=== PATIENT | female | born 2000 | race Caucasian/White ===

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

== ENCOUNTER 2021-01-27 19:17 | Emergency (ER) | payer OTHER ==
[2021-01-27 20:14] LABS: HEMOGLOBIN 8.2 gm/dl (12.3-15.3); RED BLOOD COUNT 3.52 M/UL (4.00-5.10); WHITE BLOOD COUNT 12.9 K/UL (4.5-11.0)
[2021-01-27 20:40] LABS: BUN/CREATININE RATIO 14 (0-10)
[2021-01-27] MEDS ORDERED: MACROBID 100 M100 MG PO (22:03)
== END 2021-01-27 22:18 | disposition home or self-care (01) ==
LOC: ER1 19:17
PROVIDERS: Physician Assistant
DX: O99.013 Anemia complicating pregnancy, third trimester (principal); O99.283 Endocrine, nutritional and metabolic diseases complicating pregnancy, third trimester; O99.513 Diseases of the respiratory system complicating pregnancy, third trimester; J45.909 Unspecified asthma, uncomplicated; K21.9 Gastro-esophageal reflux disease without esophagitis; Z3A.49 Greater than 42 weeks gestation of pregnancy; Z79.899 Other long term (current) drug therapy
CPT/HCPCS: 80053; 81001; 85025; 87086; 99284

== ENCOUNTER 2021-03-08 15:42 | Inpatient (IN) | payer OTHER ==
[~2021-03-08] VITALS: Ht 172.7 cm; Wt 69.4 kg
[~2021-03-08 15:42] MED LIST changes: +MACROBID 100 M100 MG PO
[2021-03-08 22:50] LABS: HEMOGLOBIN 7.4 gm/dl (12.3-15.3); RED BLOOD COUNT 3.61 M/UL (4.00-5.10); WHITE BLOOD COUNT 15.2 K/UL (4.5-11.0)
[2021-03-09] MEDS ORDERED: ACID CONTROLLER10 MG PO (00:34)
[2021-03-10 05:54] LABS: HEMOGLOBIN 6.7 gm/dl (12.3-15.3)
[2021-03-11] MEDS ORDERED: SOF-LAX100 MG PO (12:19)
[2021-03-11] MEDS ORDERED: IBUPROFEN800 MG PO (12:19)
[2021-03-11] MEDS ORDERED: HEMOCYTE-F TAB1 EACH PO (12:24)
== END 2021-03-11 13:00 | disposition home or self-care (01) | DRG 807 ==
LOC: OB 15:42 → GENOP 15:42 → OB 22:10 → GENOP 22:11 → OB 03-09 17:12
PROVIDERS: Obstetrics & Gynecology; ADMIT Obstetrics & Gynecology
PROC: 10E0XZZ Delivery of Products of Conception, External Approach (ICD-10-PCS; principal; 2021-03-09)
PROC: 0KQM0ZZ Repair Perineum Muscle, Open Approach (ICD-10-PCS; 2021-03-09)
PROC: 10907ZC Drainage of Amniotic Fluid, Therapeutic from Products of Conception, Via Natural or Artificial Opening (ICD-10-PCS; 2021-03-09)
PROC: 3E033VJ Introduction of Other Hormone into Peripheral Vein, Percutaneous Approach (ICD-10-PCS; 2021-03-09)
PROC: 3E0234Z Introduction of Serum, Toxoid and Vaccine into Muscle, Percutaneous Approach (ICD-10-PCS; 2021-03-09)
DX: O69.81X0 Labor and delivery complicated by cord around neck, without compression, not applicable or unspecified (principal); Z37.0 Single live birth; Z3A.37 37 weeks gestation of pregnancy; Z23 Encounter for immunization; O99.02 Anemia complicating childbirth; D64.9 Anemia, unspecified; O99.52 Diseases of the respiratory system complicating childbirth; J45.909 Unspecified asthma, uncomplicated
CPT/HCPCS: 36415; 51702; 81001; 83518; 85014; 85018; 85025; 90471; 90715; J2405; J2590; J2795; J3010; J7120